=== PATIENT | female | born 2000 | race Caucasian/White ===

== ENCOUNTER 2022-06-21 15:00 | Inpatient (IN) | payer OTHER ==
[~2022-06-21] VITALS: Ht 154.9 cm; Wt 76.4 kg
[2022-06-24] VITALS (39 sets, daily range): BP systolic 110–160; BP diastolic 62–97; PULSE 55–107; TEMP 98.1–98.2
--- NOTE | 2022-06-24 06:30 | NUR ---
Pt arrived on unit ambulatory and escorted by for scheduled induction of labor. Pt reports occasional contractions, denies any leaking of fluid or vaginal bleeding and reports normal movement. EFM and toco monitors started. Vital signs done and BP elevated. Plan of care for labor induction reviewed with pt and at the bedside. Both verbalized an understanding.
[2022-06-24 07:21] LABS: BASO % 0.3 % (0.0-2.0); EOS # 0.1 K/mm3 (0.0-0.7); EOS % 0.8 % (0.0-4.0); GRAN # 8.9 K/mm3 (1.4-6.5); GRAN % 75.2 % (42.2-75.2); HEMOGLOBIN 11.9 g/dl (12.0-15.0); LYMPH # 2.1 K/mm3 (1.2-3.4); LYMPH % 17.7 % (20.0-51.0); MEAN CELL VOLUME 86 fl (80.0-95.0); MEAN CORPUSCULAR HEMOGLOBIN 30 pg (26-32); MEAN CORPUSCULAR HGB CONC 34 g/dl (33.0-37.0); MEAN PLATELET VOLUME 9.4 fl (7.4-10.4); MONO # 0.6 K/mm3 (0.1-0.6); PLATELET COUNT 252 K/mm3 (130-400); RED BLOOD COUNT 4.04 M/mm3 (4.10-5.30); REDCELL DISTRIBUTION WIDTH-CV 12.2 % (11.5-14.5)
[2022-06-24 07:22] LABS: HEMATOCRIT 34.9 % (35.0-45.0)
--- NOTE | 2022-06-24 07:25 | NUR ---
Dr. Turner at the bedside. FHR tracing and maternal BP reviewed. Bedside US done and vertex confirmed. Orders for CMP to be added to admission labs received.
[2022-06-24 07:48] LABS: ALBUMIN 2.9 gm/dL (3.5-5.0); BILIRUBIN,TOTAL 0.3 mg/dL (0.2-1.2); CALCIUM 9.5 mg/dL (8.4-10.2); CREATININE, serum 0.71 mg/dL (0.57-1.11); POTASSIUM 3.5 mmol/L (3.5-4.5); TOTAL PROTEIN 6.6 gm/dL (6.2-8.1)
--- NOTE | 2022-06-24 09:15 | NUR ---
Pt standing at the edge of the bed. EFM intermittently tracing maternal HR. This RN remains at the bedside with frequent attempts to adjust monitor.
--- NOTE | 2022-06-24 09:35 | NUR ---
Pt going back and forth between standing at the bedside and sitting on a birthing ball. EFM intermittently tracing maternal HR. This RN remains at the bedside with frequent attempts to adjust the monitor.
--- NOTE | 2022-06-24 10:02 | NUR ---
0955- BRITANY Chapman at the bedside for epidural placement per pt's request. Pt sitting up on the edge of the bed. Time out done. 1002- Single shot done per BRITANY Chapman. See anesthesia records for details. EFM tracing maternal HR as coorelates with SPO2 monitor. 1008- Assisted pt back to supine position with left wedge. EFM and toco monitors adjusted. Plan of care reviewed with pt and .
--- NOTE | 2022-06-24 12:30 | NUR ---
Dr. Turner at the bedside. FHR tracing reviewed. SVE .
--- NOTE | 2022-06-24 14:10 | NUR ---
Pushing stopped per Dr. Turner until he is on unit to assess due to tachycardia.
--- NOTE | 2022-06-24 15:15 | NUR ---
1450- Pushing restarted. Dr. Turner and support services manager at the bedside. Pt set up for delivery. 1515- of viable male . Hastings placed on mom's abdomen. Cords clamped and cut. Care of the given to nursery RN at the bedside. 1518- of placenta. Pitocin started at 333ml/hr per order and protocol. Fundus firm and lochia WNL.
--- NOTE | 2022-06-24 17:30 | NUR ---
Pt up to the bathroom with use of the [facility] and without complications. Pt was able to void. Judy-care done. Pt transferred to room 207 via Liz Steady. Assisted to the bed. Oriented to room, bed and call light within reach. Plan of care reviewed.
[2022-06-25 00:20] VITALS: BP 115/68; PULSE 64; TEMP 98.7
[2022-06-25 06:34] LABS: HEMOGLOBIN 10.6 g/dl (12.0-15.0)
[2022-06-25 06:39] LABS: HEMATOCRIT 31.5 % (35.0-45.0)
--- NOTE | 2022-06-25 09:14 | NUR ---
Initial visit; Parents thanked [facility] for looking in on them and offering congratulations and God's blessings for the of their son. [facility] thanked family for choosing [facility].
[2022-06-25 09:40] VITALS: BP 121/68; PULSE 60; TEMP 97.6
[2022-06-25 12:41] VITALS: BP 122/63; PULSE 66; TEMP 98.2
[2022-06-25 20:30] VITALS: BP 127/77; PULSE 67; TEMP 97.7
[2022-06-26 07:17] VITALS: BP 125/70; PULSE 57; TEMP 97.8
--- NOTE | 2022-06-26 11:35 | NUR ---
HEALTH HISTORY AND DISCHARGE INSTRUCTIONS GIVEN TO PATIENT. DISCUSSED FOLLOW UP APPOINTMENT. QUESTIONS INVITED AND ANSWERED.
== END 2022-06-26 11:50 | disposition home or self-care (01) | DRG 807 ==
LOC: LDR 06-24 06:05 → OB 06-24 14:59
PROVIDERS: ADMIT Obstetrics & Gynecology
PROC: 10E0XZZ Delivery of Products of Conception, External Approach (ICD-10-PCS; principal; 2022-06-24)
PROC: 10907ZC Drainage of Amniotic Fluid, Therapeutic from Products of Conception, Via Natural or Artificial Opening (ICD-10-PCS; 2022-06-24)
PROC: 3E033VJ Introduction of Other Hormone into Peripheral Vein, Percutaneous Approach (ICD-10-PCS; 2022-06-24)
DX: O13.4 Gestational [pregnancy-induced] hypertension without significant proteinuria, complicating childbirth (principal); Z37.0 Single live birth; O99.52 Diseases of the respiratory system complicating childbirth; J45.909 Unspecified asthma, uncomplicated; O99.344 Other mental disorders complicating childbirth; F41.9 Anxiety disorder, unspecified; F32.A Depression, unspecified; Z3A.39 39 weeks gestation of pregnancy
CPT/HCPCS: J2590; J7120